=== PATIENT | female | born 1980 | race Caucasian/White ===

== ENCOUNTER 2020-07-01 13:42 | Outpatient (REF) | payer OTHER, MEDICAID, SELFPAY ==
--- NOTE | ~2020-07-01 | US_ITS ---
EXAMINATION: US VENOUS ULTRASOUND WITH DOPPLER LOWER EXTREMITY, RIGHT CLINICAL INFORMATION: Swelling COMPARISON: Previous exams most recent June 2019 TECHNIQUE: Ultrasound of the deep veins is performed from the hip to the calf with compression sonography and color and pulse Doppler assessment. Spectral analysis with color-flow imaging is performed. FINDINGS: There is normal venous compression and respiratory variation and augmented flow. The visualized common femoral vein, superficial femoral vein, profunda femoral vein, popliteal vein, and the trifurcation region shows no evidence of deep venous thrombosis. There is a 4.1 x 1.6 x 4.1 popliteal fossa cyst. US/US venous duplex LE RT IMPRESSION: No DVT demonstrated in the right lower extremity. 4.1 x 1.6 x 4.1 cm Jay's cyst.
== END 2020-07-01 13:43 | disposition home or self-care (01) ==
LOC: HO.US 13:42
PROVIDERS: PCP Internal Medicine; Visit Provider Nurse Practitioner Primary Care
DX: R60.0 Localized edema (principal); L53.9 Erythematous condition, unspecified
CPT/HCPCS: 93971

== ENCOUNTER 2020-08-01 13:13 | Outpatient (REF) | payer OTHER, MEDICAID, SELFPAY ==
--- NOTE | ~2020-08-01 | US_ITS ---
EXAMINATION: US VENOUS ULTRASOUND WITH DOPPLER LOWER EXTREMITY, LEFT CLINICAL INFORMATION: Pain and swelling COMPARISON: None TECHNIQUE: Ultrasound of the deep veins is performed from the hip to the calf with compression sonography and color and pulse Doppler assessment. Spectral analysis with color-flow imaging is performed. FINDINGS: There is normal venous compression and respiratory variation and augmented flow. The visualized common femoral vein, superficial femoral vein, profunda femoral vein, popliteal vein, and the trifurcation region shows no evidence of deep venous thrombosis. There is no significant popliteal fossa cyst. . US/US venous duplex LE LT IMPRESSION: No DVT demonstrated in the left lower extremity.
== END 2020-08-01 13:14 | disposition home or self-care (01) ==
LOC: HO.HMGCX 13:13
PROVIDERS: Visit Provider Nurse Practitioner Primary Care
DX: M79.662 Pain in left lower leg (principal)
CPT/HCPCS: 93971

== ENCOUNTER 2022-04-03 18:57 | Emergency (ER) | payer OTHER, MEDICAID, SELFPAY ==
--- NOTE | ~2022-04-03 | US_ITS ---
EXAMINATION: US VENOUS ULTRASOUND WITH DOPPLER LOWER EXTREMITY, LEFT CLINICAL INFORMATION: Left lower extremity pain COMPARISON: None TECHNIQUE: Ultrasound of the deep veins is performed from the hip to the calf with compression sonography and color and pulse Doppler assessment. Spectral analysis with color-flow imaging is performed. FINDINGS: There is normal venous compression and respiratory variation and augmented flow. The visualized common femoral vein, superficial femoral vein, profunda femoral vein, popliteal vein, and the trifurcation region shows no evidence of deep venous thrombosis. Somewhat limited visualization of the distal femoral vein due to body habitus. If the patient's symptoms persist, followup ultrasound in 5 days 7 days might be of value to exclude proximal propagation from a non-visualized calf vein. US/US venous duplex LE LT IMPRESSION: No DVT demonstrated in the left lower extremity.
[2022-04-03 19:01] VITALS: BP 185/59; PULSE 104; RESP 20; TEMP 36.4; O2SAT 96; BMI 51.6
--- NOTE | 2022-04-03 19:06 | ED.GENADULT ---
HPI - General Adult General Chief complaint: General Medical <KELLEE Clark - Last Filed: 04/03/22 19:10> Stated complaint: left leg numb/tingling <KELLEE Clark - Last Filed: 04/03/22 19:10> Time Seen by Provider: 04/03/22 20:33 <KELLEE Clark - Last Filed: 04/03/22 19:10> Source: patient <Milly Corrales MD - Last Filed: 04/03/22 21:48> Mode of arrival: ambulatory <Milly Corrales MD - Last Filed: 04/03/22 21:48> Limitations: no limitations <Milly Corrales MD - Last Filed: 04/03/22 21:48> History of Present Illness HPI narrative: Patient comes emergency room complaining of a strain sensation in her left calf. Patient is concerned about having a blood clot because she started Provera approximately week and half ago. Patient is on a high dose, and wanted to make sure that she does not have a cough. Patient has no significant pain. <Milly Corrales MD - Last Filed: 04/03/22 21:48> Related Data Allergies/adverse reactions: Allergies Allergy/AdvReac Type Severity Reaction Status Date / Time ciprofloxacin [CIPROFLOXACIN] Allergy Unknown UNKNOWN Unverified 12/06/19 15:18 latex [LATEX] Allergy Unknown RASH Unverified 12/06/19 15:18 penicillin V Allergy Unknown Verified 06/28/13 00:00 Penicillins [PENICILLINS] Allergy Unknown RASH Unverified 12/06/19 15:18 Clindamycin HCl Allergy Unknown Uncoded 06/28/13 00:00 Latex Allergy Unknown Uncoded 06/28/13 00:00 <KELLEE Clark - Last Filed: 04/03/22 19:10> Review of Systems Review of Systems: Constitutional : No Weight loss, No Fever, No Chills, No Night Sweats, No Fatigue, No Malaise ENT/Mouth : No Hearing loss, No Ear Pain, No Nasal Congestion, No Sinus Pain, No Hoarseness, No sore throat, No Rhinorrhea, No Swallowing Difficulty Eyes: No Eye Pain, No Swelling, No Redness, No Foreign Body, No Discharge, No Vision Changes Cardiovascular : No Chest Pain, No SOB, No Dyspnea on Exertion, No Orthopnea, No Edema, No Palpitations Respiratory : No Cough, No Sputum, No Wheezing, No Smoke Exposure, No Dyspnea Gastrointestinal : No Nausea, No Vomiting, No Diarrhea, No Constipation, No abdominal Pain, No Hematochezia, No Melena Genitourinary : no irregular bleeding, No Dysuria, No Urinary Frequency, No Hematuria, No Urinary Incontinence, No Urgency, No Flank Pain, No Urinary Flow Changes, No Hesitancy Musculoskeletal : Complaining of left leg swelling with no pain Skin : No Skin Lesions, No rash Neuro : No Weakness, No Numbness, No Paresthesias, No Loss of Consciousness, No Dizziness, No Headache Psych : No Anxiety/Panic, No Depression, No SI/HI/AH/VH, No Social Issues, Heme/Lymph: No Bruising, No Bleeding,No Lymphadenopathy Endocrine : No Polyuria, No Polydipsia, No Temperature Intolerance <Milly Corrales MD - Last Filed: 04/03/22 21:48> [facility] Past Medical History Medical History: Medical History (Updated 04/03/22 @ 21:47 by Milly Corrales MD) Metrorrhagia <KELLEE Clark - Last Filed: 04/03/22 19:10> Social History Social History: Social History Advance Directives: No Advance Directives Information Provided: No <KELLEE Clark - Last Filed: 04/03/22 19:10> Physical Exam ED Vital Signs: Vital Signs - 24 hr 04/03/22 19:01 04/03/22 21:35 Temperature 97.5 F Pulse Rate 104 H 94 Respiratory Rate 20 18 Blood Pressure 185/59 H 175/88 H Pulse Oximetry 96 99 Oxygen Delivery Method Room Air Room Air BMI result Body Mass Index 51.6 <KELLEE Clark - Last Filed: 04/03/22 19:10> Vital Signs - 24 hr 04/03/22 19:01 04/03/22 21:35 Temperature 97.5 F Pulse Rate 104 H 94 Respiratory Rate 20 18 Blood Pressure 185/59 H 175/88 H Pulse Oximetry 96 99 Oxygen Delivery Method Room Air Room Air BMI result Body Mass Index 51.6 <Milly Corrales MD - Last Filed: 04/03/22 21:48> Const Other: Appearance: Alert. Oriented X3. No acute distress. Eyes: Pupils equal, round and reactive to light. ENT: Pharynx normal. Neck: Normal inspection. Neck supple. No lymph nodes noted. No crepitus CVS: Normal heart rate and rhythm. Pulses normal. Normal S1 and S2 Respiratory: No respiratory distress. Breath sounds normal. No Wheezing. No rales Abdomen: Soft and nontender. No rigidity. No distention. Skin: Skin warm and dry. Normal skin color. Normal skin turgor. Extremities: Both legs look the same size, no calf tenderness. Patient does have palpable varicose veins which are slightly painful on the left lower extremity Neuro: Oriented X 3. No motor deficit. No sensory deficit. Moving all extremities. No slurred speech. CN 2 through 12 grossly intact Psych: calm, cooperative, normal affect <Milly Corrales MD - Last Filed: 04/03/22 21:48> Course Course Course Narrative: RME--41yo F c/o left leg pain described as watery feeling and tingling since last night. Reports recently started Depo-Provera. Denies SOB or history of clots. Denies current cigarette smoking, did smoke in the past Patient is very anxious in triage, tachycardic likely from anxiety Left lower extremity venous duplex ultrasound ordered <KELLEE Clark - Last Filed: 04/03/22 19:10> RME--41yo F c/o left leg pain described as watery feeling and tingling since last night. Reports recently started Depo-Provera. Denies SOB or history of clots. Denies current cigarette smoking, did smoke in the past Patient is very anxious in triage, tachycardic likely from anxiety Left lower extremity venous duplex ultrasound ordered -left lower extremity ultrasound venous duplex pending <Milly Corrales MD - Last Filed: 04/03/22 21:48> Medical Decision Making Medical Decision Making MDM Narrative: Discussed with the patient her ultrasound is negative. Also discussed with the patient that if she has ongoing symptoms in the next 7 days, she may need a repeat ultrasound. <Milly Corrales MD - Last Filed: 04/03/22 21:48> Differential Diagnosis Differential Diagnoses: The differential diagnosis associated with the presentation includes (DVT, lower extremity edema, varicose veins) <Milly Corrales MD - Last Filed: 04/03/22 21:48> Radiology Impression Discussion of test interpretation with radiology: I have reviewed the radiologist's reading. <Milly Corrales MD - Last Filed: 04/03/22 21:48> Radiologist Impression: FINDINGS: There is normal venous compression and respiratory variation and augmented flow. The visualized common femoral vein, superficial femoral vein, profunda femoral vein, popliteal vein, and the trifurcation region shows no evidence of deep venous thrombosis. Somewhat limited visualization of the distal femoral vein due to body habitus. If the patient's symptoms persist, followup ultrasound in 5 days 7 days might be of value to exclude proximal propagation from a non-visualized calf vein. US/US venous duplex LE LT IMPRESSION: No DVT demonstrated in the left lower extremity. <Milly Corrales MD - Last Filed: 04/03/22 21:48> Discharge Plan Discharge Clinical Impression: Lower extremity pain <KELLEE Clark - Last Filed: 04/03/22 19:10> Patient Disposition: Home, Self-Care <KELLEE Clark - Last Filed: 04/03/22 19:10> Instructions: Leg Edema (ED) <KELLEE Clark - Last Filed: 04/03/22 19:10> Additional Instructions: Please follow-up with your primary care physician tomorrow. If you have any worsening or new symptoms, please return to the emergency room or call 911 <KELLEE Clark - Last Filed: 04/03/22 19:10>
--- NOTE | 2022-04-03 19:40 | PC.NURSE ---
pt resting on stretcher, appears anxious, no apparent distress at this time, awaiting ultrasound
[2022-04-03 21:35] VITALS: BP 175/88; PULSE 94; RESP 18; O2SAT 99
== END 2022-04-03 21:55 | disposition home or self-care (01) ==
PROVIDERS: Emergency Provider Emergency Medicine
DX: M79.662 Pain in left lower leg (principal); Z79.899 Other long term (current) drug therapy
CPT/HCPCS: 93971; 99283; 99284

== ENCOUNTER 2022-08-25 21:02 | Emergency (ER) | payer OTHER, MEDICAID, SELFPAY ==
[2022-08-25 21:06] VITALS: BP 166/95; PULSE 114; RESP 18; TEMP 36.7; O2SAT 97; BMI 51.6
[2022-08-25 21:32] LABS: MANUAL DIFF FLAG NO
[2022-08-25 21:34] LABS: Basophils Percent Auto 0.3 % (0-2); Eosinophils Absolute Auto 0.1 X10*3/uL (0.0-0.4); Eosinophils Percent Auto 1.2 % (0-4); Hematocrit 38.3 % (37.0-47.0); Hemoglobin 12.2 g/dl (12.0-16.0); Imm Gran Abs Auto 0.03 X10*3/uL (0.00-0.03); Imm Gran Pct Auto 0.3 % (0.0-0.4); Lymphocytes Absolute Auto 2.5 X10*3/uL (1.2-4.9); Lymphocytes Percent Auto 24.8 % (20-40); Mean Corpuscular HGB Conc 31.9 g/dl (31.0-35.0); Mean Corpuscular Hemoglobin 25.6 pg (27.0-33.0); Mean Corpuscular Volume 80.3 fL (80.0-98.0); Mean Platelet Volume 9.6 fL (9.4-12.3); Monocytes Absolute Auto 0.7 X10*3/uL (0.1-1.2); Monocytes Percent Auto 7.4 % (2-11); Neutrophils Absolute Auto 6.6 x10*3/uL (2.0-8.3); Platelet Count 216 X10*3/uL (160-400); Red Blood Count 4.77 X10*6/uL (4.20-5.50); Red Cell Distribution Width 15.6 % (11.0-16.0); White Blood Count 9.9 X10*3/uL (4.8-10.8)
[2022-08-25 21:50] LABS: Alanine Aminotransferase 17 U/L (0-31); Albumin Level 4.2 g/dL (3.5-5.0); Alkaline Phosphatase 57 U/L (39-117); Anion Gap 11 (12-20); Aspartate Amino Transferase 14 U/L (5-31); Bilirubin Total 0.3 mg/dL (0.0-1.0); Blood Urea Nitrogen 17 mg/dL (9-16); Calcium 9.9 mg/dL (8.4-10.2); Carbon Dioxide 23 mmol/L (22-29); Chloride 109 mmol/L (96-108); Creatinine Clr Calc Pharmacy 138.6; Estimated Glomerular Filt Rate > 60; Glucose Random 116 mg/dL (60-115); Potassium 3.9 mmol/L (3.3-5.1); Sodium 139 mmol/L (135-145); Total Protein 7.6 g/dL (6.5-8.0)
[2022-08-25 22:00] VITALS: BP 132/68; PULSE 79; RESP 18; TEMP 37.1; O2SAT 97
--- NOTE | 2022-08-25 22:51 | ED.EXTPRO ---
HPI - Extremity Problem General Chief complaint: Extremity Problem Stated complaint: L Leg problems, chest pressure?, multiple compl Time Seen by Provider: 08/25/22 21:57 Source: patient Mode of arrival: ambulatory History of Present Illness HPI Narrative: 42-year-old female, very anxious, who presents with concerns regarding left calf discomfort as well as posterior left thigh discomfort and reports that she has recently started Depo injections on Tuesday in has known, underlying varicosities. Patient also reports that she has a high level of anxiety, stress. Related Data Allergies Allergy/AdvReac Type Severity Reaction Status Date / Time strawberry Allergy Severe Rash Verified 08/25/22 21:11 penicillin V Allergy Intermediate Rash Verified 08/25/22 21:11 ciprofloxacin [CIPROFLOXACIN] Allergy Unknown UNKNOWN Unverified 12/06/19 15:18 latex [LATEX] Allergy Unknown RASH Unverified 12/06/19 15:18 Penicillins [PENICILLINS] Allergy Unknown RASH Unverified 12/06/19 15:18 Clindamycin HCl Allergy Intermediate Anaphylaxis Uncoded 08/25/22 21:11 Latex Allergy Intermediate Rash Uncoded 08/25/22 21:11 Review of Systems Review of Systems: Pertinent positives and negatives as stated in HPI PMFSH Past Medical History Source: nursing notes reviewed Medical History Metrorrhagia Social History Social History Advance Directives: No Advance Directives Information Provided: No Physical Exam Vital Signs: Vital Signs: Last Vital Signs Temp 98.7 F 08/25/22 22:00 Pulse 79 08/25/22 22:00 Resp 18 08/25/22 22:00 BP 132/68 08/25/22 22:00 Pulse Ox 97 08/25/22 22:00 O2 Del Method Room Air 08/25/22 22:00 BMI result Body Mass Index 51.6 VITAL SIGNS: Reviewed. GENERAL: Elevated BMI, Well developed, well nourished, in no acute distress. HEAD: Normocephalic/atraumatic EYES: PERRLA, EOMI EARS: Ext canals without abnormality NOSE: Nares patent bilateral OROPHARYNX: no oral lesions noted, posterior pharynx clear NECK: Supple, no adenopathy LUNGS: Normal breath sounds. No adventitious sounds or accessory muscle use. SpO2<97> CARDIOVASCULAR: Regular rate and rhythm without noted murmurs ABDOMEN: Soft, non-tender, non-distended with bowel sounds. MUSCULOSKELETAL: No tenderness, deformities, or effusions noted on gross inspection. EXTREMITIES: No cyanosis, clubbing or edema, noted varicosities, no cords. SKIN: Inspection of the skin reveals no rashes NEUROLOGIC: Alert and oriented x 4. Strength and sensation to light touch were grossly intact x 4. PSYCH: Tearful, anxious Medical Decision Making Medical Decision Making MDM Narrative: 42-year-old female with history and clinical presentation likely musculoskeletal or possibly a mild thrombophlebitis and lower clinical suspicion for suspected DVT given the short time frame from initiation of Depo to onset of symptoms. Patient is also noted to be very anxious, tearful, stating that she does not feel well and has many health concerns although she has excellent insight and states that she has been evaluated by consultants for various body systems but everything has turned out to be okay. Patient states that she does not feel well but endorses that she is under a tremendous amount of stress both at work, the health of her mother, somewhat recent loss of her father. Patient has been unsure about whether not to go on anti anxiety/depression medication however I strongly encouraged to the patient that she should not suffer any longer and that she should initiate treatment. She is not suicidal or homicidal at this time, I reviewed other lab work but will proceed with obtaining a D-dimer. Although had low clinical suspicion for DVT, D-dimer further reassures me and will reassure patient that this is likely either musculoskeletal or possible thrombophlebitis in nature. She is otherwise discharged home in stable condition. Differential Diagnosis Please see the discussion above Lab Data Please see the discussion above 08/25/22 21:28 08/25/22 21:28 Labs: Lab Results 08/25/22 08/25/22 08/25/22 Range/Units 21:28 21:28 23:29 WBC 9.9 (4.8-10.8) X10*3/uL RBC 4.77 (4.20-5.50) X10*6/uL Hgb 12.2 (12.0-16.0) g/dl Hct 38.3 (37.0-47.0) % MCV 80.3 (80.0-98.0) fL MCH 25.6 L (27.0-33.0) pg MCHC 31.9 (31.0-35.0) g/dl RDW 15.6 (11.0-16.0) % Plt Count 216 (160-400) X10*3/uL MPV 9.6 (9.4-12.3) fL Immature Gran % (Auto) 0.3 (0.0-0.4) % Neut % (Auto) 66.0 (45-73) % Lymph % (Auto) 24.8 (20-40) % [place] % (Auto) 7.4 (2-11) % Eos % (Auto) 1.2 (0-4) % Baso % (Auto) 0.3 (0-2) % Lymph # (Auto) 2.5 (1.2-4.9) X10*3/uL [place] # (Auto) 0.7 (0.1-1.2) X10*3/uL Eos # (Auto) 0.1 (0.0-0.4) X10*3/uL Baso # (Auto) 0.0 (0.0-0.2) X10*3/uL Abs Immat Gran (auto) 0.03 (0.00-0.03) X10*3/uL Absolute Neuts (auto) 6.6 (2.0-8.3) x10*3/uL Absolute Nucleated RBC 0.000 (0.0-0.012) X10*3/uL Nucleated RBC % (auto) 0.0 (0.0-0.2) /100WBC D-Dimer High Sensitivty < 150 NG/ML Sodium 139 (135-145) mmol/L Potassium 3.9 (3.3-5.1) mmol/L Chloride 109 H (96-108) mmol/L Carbon Dioxide 23 (22-29) mmol/L Anion Gap 11 L (12-20) BUN 17 H (9-16) mg/dL Creatinine 0.87 (0.5-1.4) mg/dL Estim Creat Clear Calc 138.6 Estimated GFR > 60 Random Glucose 116 H (60-115) mg/dL Calcium 9.9 (8.4-10.2) mg/dL Total Bilirubin 0.3 (0.0-1.0) mg/dL AST 14 (5-31) U/L ALT 17 (0-31) U/L Alkaline Phosphatase 57 (39-117) U/L Total Protein 7.6 (6.5-8.0) g/dL Albumin 4.2 (3.5-5.0) g/dL External Record Review External record reviewed: Prior outpatient labs Discharge Plan Discharge Clinical Impression: Lower extremity pain, left, Thrombophlebitis Patient Disposition: Home, Self-Care Instructions: Superficial Thrombophlebitis (ED), Leg Pain (ED) Additional Instructions: 1. Please follow-up with primary care provider, call this person in the morning, and get started on medications so that you begin to feel better. Do not hesitate to return to the emergency room if anything changes or your symptoms significantly worsen. Referrals: Reggie Gray MD [Primary Care Provider] -
[2022-08-25 23:49] LABS: D Dimer High Sensitivity < 150 NG/ML
[2022-08-26] VITALS: BP 131/75; PULSE 92; RESP 16; TEMP 36.9; O2SAT 98
--- NOTE | 2022-08-27 11:13 | MHC.EVENTN ---
I spoke with Jadon today about her recent ED visit. She eluded to the fact she is having some mental health concerns not feeling SI or HI at this time. I listened to her concerns and offered to help her find some resourecs for MH care. I will call her back with this information as soon as I can. I spoke with Alycia Orozco and we came up with 3 resources for jadon. 1. [facility] urgent care services 2. [facility] (may be a bit of a wait for an appt) and 3. [place] [facility] I left her a voice mail message today at 11:15 to call me back so I can better explain these resources for her.
--- NOTE | 2022-08-27 11:48 | MHC.EVENTN ---
I spoke with Mony and outlined the three options, she will follow up with one of those today. She thanked me for the follow up.
== END 2022-08-26 00:20 | disposition home or self-care (01) ==
PROVIDERS: Emergency Provider Student in an Organized Health Care Education/Training Program; PCP Internal Medicine
DX: M79.605 Pain in left leg (principal); I80.3 Phlebitis and thrombophlebitis of lower extremities, unspecified
CPT/HCPCS: 36415; 80053; 85025; 85379; 99283

== ENCOUNTER 2023-04-06 08:01 | Outpatient (AMB) | payer OTHER, SELFPAY ==
[2023-04-06 08:05] VITALS: BP 130/72; PULSE 112; TEMP 36.7; O2SAT 98
--- NOTE | 2023-04-06 08:05 | AM.OFFWIN_ITS ---
Intake Vital Signs 04/06/23 08:05 Height 5 ft 10 in BP 130/72 Blood Pressure Location Rt brachial Position Sitting Pulse 112 H Pulse Source Pulse Oximeter Temp 98.0 F Temp Source Oral Pulse Oximetry (%) 98 Oxygen Delivery Method Room Air Intake Visit Reasons: EST/pulled muscle right side (lobby) Intake Note: pt is here for c.o pulled muscle right side abd since last night denies injury Patient Tobacco Use Status: Never used Tobacco Allergies strawberry Allergy (Severe, Verified 04/06/23 08:06) Rash penicillin V Allergy (Intermediate, Verified 04/06/23 08:06) Rash ciprofloxacin [CIPROFLOXACIN] Allergy (Unknown, Verified 04/06/23 08:06) UNKNOWN latex [LATEX] Allergy (Unknown, Verified 04/06/23 08:06) RASH Penicillins [PENICILLINS] Allergy (Unknown, Verified 04/06/23 08:06) RASH Clindamycin HCl Allergy (Intermediate, Uncoded 08/25/22 21:11) Anaphylaxis Latex Allergy (Intermediate, Uncoded 08/25/22 21:11) Rash Do you need a note to return to daycare/school/sports/work: Yes HPI HPI Comments History of Present Illness Details This is a 42-year-old female with no stated past medical or abdominal surgical history presenting for evaluation of abdominal pain. Patient states that she and members of her family have had upper respiratory infections over the past 2 weeks and she has been coughing for several days. Patient states over the past week she has had a bruising sensation that she describes as tenderness in her left lower quadrant. Last night the patient developed a ?twisting soreness? in her left upper quadrant that she describes as a 4/10 discomfort. Patient's last bowel movement was this morning and was of normal caliber. Patient has not taken any medication for treatment of her discomfort. She denies having any fevers, chills, nausea, vomiting, postprandial pain, dysuria, urinary frequency or diarrhea. Patient's last normal menstrual period was the end of February 2023; she is on Depo-Provera. REPLACED BY [facility] Medical History Metrorrhagia Social History Patient Tobacco Use Status: Never used Tobacco Review of Systems Const All systems reviewed & are unremarkable except as noted in HPI and below GI Reports abdominal pain (left sided), Denies bloating, Denies change in stool character, Denies constipation, Denies diarrhea, Denies loose stools, Denies nausea and Denies vomiting Reports no additional complaints, Denies dysmenorrhea, Denies dysuria and Denies pelvic pain Physical Exam Const General: cooperative, comfortable and well developed Nutritional Appearance: obese Orientation/consciousness: patient oriented x3 Limitations: no limitations Chest Chest palpation & inspection: no tenderness Resp Effort & Inspection: normal respiratory effort, able to speak in complete sentences, no audible wheezes, no cough and respiratory effort not decreased Auscultation: clear to auscultation bilaterally Cardio Rhythm: regular rhythm Heart sounds: S1 normal heart sound present GI Inspection: Yes normal to inspection and No abdominal wall ecchymosis Palpation (GI): Soft to palpation, Tenderness to palpation present (GI) in the LUQ; not in the epigastrum, not in the LLQ, not in the RLQ, not in the RUQ and with no rebound tenderness, no guarding and no hernias Auscultation: normal bowel sounds Skin General skin exam: no rashes or lesions noted Neuro General: patient oriented x3 Psych Appearance: grossly normal Mental Status: mental status grossly normal Insight: Good insight present (Psych) Judgement: Good judgement present (Psych) Assessment & Plan Assessment & Plan (1) LUQ abdominal pain: Comment: Patient is seen and evaluated. Her medical and surgical history is reviewed. Patient's clinical examination is not consistent with an acute abdomen. Patient's history is most consistent with a muscle strain secondary to her persistent coughing. Code(s): R10.12 - Left upper quadrant pain Plan: Ibuprofen or Aleve [id number] as needed for 5-7 days. Patient is instructed to return for any worsening symptoms. Coding Level of Care Code New Pt Level 3 (94030) Diagnoses LUQ abdominal pain R10.12 Time Spent (min) 20
== END 2023-04-06 08:38 | disposition home or self-care (01) ==
PROVIDERS: PCP Internal Medicine; Visit Provider Physician Assistant
DX: R10.12 Left upper quadrant pain (principal)
CPT/HCPCS: 99203

== ENCOUNTER 2023-06-07 08:38 | Outpatient (AMB) | payer OTHER, SELFPAY ==
[2023-06-07 09:09] VITALS: BP 140/88; PULSE 96; TEMP 36.3; O2SAT 98; BMI 51.1
--- NOTE | 2023-06-07 09:09 | MHC.OFFWIV ---
Intake Vital Signs 06/07/23 09:09 Height 5 ft 10 in Weight 356 lb BMI 51.1 BP 140/88 H Blood Pressure Location Lt brachial Position Sitting Pulse 96 Pulse Source Pulse Oximeter Temp 97.4 F Temp Source Temporal Artery Scan Pulse Oximetry (%) 98 Oxygen Delivery Method Room Air Intake Visit Reasons: EP LT knee Intake Note: pt is here today for lft knee started 1 week ago Patient Tobacco Use Status: Never used Tobacco Allergies strawberry Allergy (Severe, Verified 06/07/23 09:33) Rash penicillin V Allergy (Intermediate, Verified 06/07/23 09:33) Rash ciprofloxacin [CIPROFLOXACIN] Allergy (Unknown, Verified 06/07/23 09:33) UNKNOWN latex [LATEX] Allergy (Unknown, Verified 06/07/23 09:33) RASH Penicillins [PENICILLINS] Allergy (Unknown, Verified 06/07/23 09:33) RASH Clindamycin HCl Allergy (Intermediate, Uncoded 06/07/23 09:33) Anaphylaxis Latex Allergy (Intermediate, Uncoded 06/07/23 09:33) Rash Medication List - Last Reconciled 06/07/23 by RICHARD Hernandes No Known Home Meds Do you need a note to return to daycare/school/sports/work: Yes HPI HPI Comments History of Present Illness Details Patient is a 42-year-old female in today for sick visit. Patient states that she has developed left knee pain over the past 5 days that has progressively gotten worse. Denies any trauma to the area. Denies hearing any popping or clicking noises. Patient does have history of left knee pain but states this feels worse than usual. Patient does not utilize medications. She has utilized ice with moderate effect. Has full range of motion of the joint. No cracking or crepitus. Patient states does have some pain radiating down her left leg. Denies any tingling or numbness. Pulses +2. Patient is able to walk in the affected joint with a limp. PFSH Medical History Metrorrhagia Social History Patient Tobacco Use Status: Never used Tobacco Review of Systems Const All systems reviewed & are unremarkable except as noted in HPI and below Musc Reports arthralgias (Left knee), Denies joint swelling, Denies numbness and Denies tingling Neuro Denies numbness and Denies tingling Physical Exam Vital Signs: Last Vital Signs Temp 97.4 F 06/07/23 09:09 Pulse 96 06/07/23 09:09 BP 140/88 H 06/07/23 09:09 Pulse Ox 98 06/07/23 09:09 Oxygen Delivery Method Room Air 06/07/23 09:09 BMI result Body Mass Index 51.1 Vital signs reviewed stable. Const General: cooperative and no acute distress Nutritional Appearance: obese Orientation/consciousness: patient oriented x3 Limitations: no limitations Resp Auscultation: clear to auscultation bilaterally Cardio Rate: regular rate Rhythm: regular rhythm Heart sounds: S1 normal heart sound present and S2 normal heart sound present Neuro General: patient oriented x3 Extrem Left lower extremity: normal to inspection, full ROM and knee (+ tenderness over tibial tuberosity ) Details: Giovanni's Test not performed and no crepitus Results Reviewed Results Reviewed: Preliminary review of x-ray demonstrates no fracture. Assessment & Plan Assessment & Plan (1) Left knee sprain: Comment: Will order left knee x-ray. Will give patient knee brace. Will give meloxicam. Patient's distal pulses +2. Code(s): S83.92XA - Sprain of unspecified site of left knee, initial encounter Qualifiers: Encounter type: initial encounter Involved ligament of knee: other ligament Qualified Code(s): S83.8X2A - Sprain of other specified parts of left knee, initial encounter Plan: Take your medications as prescribed. If you were prescribed antibiotics today, it is important that you take your medication to their entirety, do not skip any doses, do not finish them early. Follow-up with your primary care provider this week. Return to the emergency department with new or worsening symptoms. Such as fevers, chills, chest pain, shortness of breath, nausea, vomiting, dizziness, headache, vision changes, lethargy In case of emergency call 911 Plan follow up with PCP. Medications: New meloxicam Do not combine with other NSAIDs 15 mg PO DAILY 10 tabs 0RF Coding Level of Care Code Est Pt Level 3 (85417) Diagnoses Sprain of other ligament of left knee, initial encounter S83.8X2A Encounter type: initial encounter Involved ligament of knee: other ligament Time Spent (min) 24
== END 2023-06-07 09:53 | disposition home or self-care (01) ==
PROVIDERS: PCP Internal Medicine; Visit Provider Nurse Practitioner Primary Care
DX: S83.8X2A Sprain of other specified parts of left knee, initial encounter (principal)
CPT/HCPCS: 99213

== ENCOUNTER 2023-06-07 09:31 | Outpatient (REF) | payer OTHER, SELFPAY ==
--- NOTE | ~2023-06-07 | XR_ITS ---
EXAMINATION: XR KNEE, LEFT CLINICAL INFORMATION: Pain left knee COMPARISON: None available. TECHNIQUE: Four views of the left knee. FINDINGS: No fracture or joint effusion. Alignment is anatomic. Joint spaces are maintained. No abnormal soft tissue calcification. XR/XR knee LT 4V IMPRESSION: Unremarkable left knee.
== END 2023-06-07 09:32 | disposition home or self-care (01) ==
LOC: HO.HMGCX 09:31
PROVIDERS: PCP Internal Medicine; Visit Provider Nurse Practitioner Primary Care
DX: M25.562 Pain in left knee (principal)
CPT/HCPCS: 73564

== ENCOUNTER 2023-09-16 09:02 | Outpatient (AMB) | payer OTHER, SELFPAY ==
[2023-09-16 09:33] VITALS: BP 130/70; PULSE 95; TEMP 36.6; O2SAT 97; BMI 51.1
--- NOTE | 2023-09-16 09:33 | AM.OFFWIN_ITS ---
Intake Vital Signs 3 09/16/23 09:33 Height 5 ft 10 in Weight 356 lb 4 oz BMI 51.1 BP 130/70 Blood Pressure Location Lt brachial Position Sitting Pulse 95 Pulse Source Pulse Oximeter Temp 97.8 F Temp Source Oral Pulse Oximetry (%) 97 Oxygen Delivery Method Room Air Intake Visit Reasons: EP rt big in grown toenail bruised Intake Note: pt is here for right big toe, ingrown toenail bruised and painful Patient Tobacco Use Status: Never used Tobacco Allergies strawberry Allergy (Severe, Verified 09/16/23 09:35) Rash penicillin V Allergy (Intermediate, Verified 09/16/23 09:35) Rash ciprofloxacin [CIPROFLOXACIN] Allergy (Unknown, Verified 09/16/23 09:35) UNKNOWN latex [LATEX] Allergy (Unknown, Verified 09/16/23 09:35) RASH Penicillins [PENICILLINS] Allergy (Unknown, Verified 09/16/23 09:35) RASH Clindamycin HCl Allergy (Intermediate, Uncoded 06/07/23 09:33) Anaphylaxis Latex Allergy (Intermediate, Uncoded 06/07/23 09:33) Rash Do you need a note to return to daycare/school/sports/work: No HPI HPI Comments 2 History of Present Illness0 Details 43 y/o female patient who presents to [facility] in clinic with c/o Hang Nail right big Toe. She was cutting her toe Nails yesterday, when she injured her toe. There is a small cut/bruise, no infection but mild tenderness. Patient has an appointment with her Strain Technician in October 06. PFSH Medical History Metrorrhagia Social History Patient Tobacco Use Status: Never used Tobacco Review of Systems Const All systems reviewed & are unremarkable except as noted in HPI and below Physical Exam Vital Signs: Last Vital Signs Temp 97.8 F 09/16/23 09:33 Pulse 95 09/16/23 09:33 BP 130/70 09/16/23 09:33 Pulse Ox 97 09/16/23 09:33 Oxygen Delivery Method Room Air 09/16/23 09:33 BMI result Body Mass Index 51.1 Const General: comfortable and no acute distress Nutritional Appearance: obese morbidly obese Orientation/consciousness: patient oriented x3 Skin Nails: discolored (Discolored right big toe, small cut/bruise. No infection) Neuro General: patient oriented x3, gait normal and moves all extremities Extrem Ankle/foot/toe images: 2 1. Small area of opening, no drainage, hardened Toe Nail, no redness and no tenderness. Psych Speech and movement: Normal speech and movement present Assessment & Plan Assessment & Plan (1) Injury of right great toe: Code(s): S99.921A - Unspecified injury of right foot, initial encounter Qualifiers: Encounter type: initial encounter Qualified Code(s): S99.921A - Unspecified injury of right foot, initial encounter Plan: Apply topical Abx as directed Keep Are clean and dry Do not wear closed toe shoes F/U with Podiatry as scheduled. Medications: New 2 mupirocin 2% 1 appl topical BID 15 grams 0RF S99.921A - Unspecified injury of right foot, initial encounter Coding Level of Care Code Est Pt Level 3 (31297) Diagnoses Injury of right great toe, initial encounter S99.921A Encounter type: initial encounter Time Spent (min) 15
== END 2023-09-16 10:07 | disposition home or self-care (01) ==
PROVIDERS: PCP Internal Medicine; Visit Provider Nurse Practitioner Family
DX: S99.921A Unspecified injury of right foot, initial encounter (principal)
CPT/HCPCS: 99213